=== PATIENT | female | born 1980 | race Caucasian/White ===

== ENCOUNTER → 2019-03-24 22:32 | Observation (INO) ==
[2019-03-24 19:40] LABS: Bilirubin,Urine Negative (Negative); Blood,Urine Negative (Negative); Clarity,Urine Clear (Clear); Color,Urine Yellow (Yellow); Glucose,Urine (UA) Normal (Normal); Ketones,Urine Negative (Negative); Leukocyte Esterase,Urine Negative (Negative); Nitrite,Urine Negative (Negative); Protein,Urine Negative (Neg-Trace); Urobilinogen,Urine Normal (Normal)
[2019-03-24 19:47] LABS: Amphetamine Screen,Urine Negative ng/mL (Cutoff=1000); Barbiturate Screen,Urine Negative ng/mL (Cutoff=200); Benzodiazepines Screen,Urine Negative ng/mL (Cutoff=200); Cannabinoid Screen,Urine Negative ng/mL (Cutoff = 50); Cocaine Screen,Urine Negative ng/mL (Cutoff= 300); Opiate Screen,Urine Negative ng/mL (Cutoff=300); Phencyclidine Screen,Urine Negative ng/mL (Cutoff=25)
--- NOTE | 2019-03-24 22:29 | OB/GYN Progress Note ---
Date of Encounter: 03/24/19 Time of Encounter: 22:27 - Assessment and Plan (1) 26 weeks gestation of Current Visit: Yes Status: Acute (2) Back pain affecting in second trimester Current Visit: Yes Status: Acute Pain improved during triage stay. Cervix remains closed. UA negative. Discharged home with labor when to return to triage precautions. Subjective - Subjective Interval history: 27 6 weeks gestation presents to triage with complaints of lower back pain. Patient states history of delivery. Reports good movement, denies vaginal bleeding or leaking of fluid. Antepartum ROS: movement normal, no loss of fluid, no vaginal bleeding, no contractions Objective - Vital Signs Vital Signs: Intake and Output 03/24/19 03/24/19 03/24/19 07:59 15:59 23:59 Other: Weight 75.2 kg Patient Weight 03/24/19 23:59 Weight 75.2 kg - Exam FHR: auscultation normal FHR comments: Appropriate for gestational age Abdomen: Present: soft, gravid Cervical dilation: Closed/thick/high confirm speculum exam
== END | disposition home or self-care (01) ==
LOC: 1NENULAB
PROVIDERS: ADMIT Advanced Practice Midwife; ATTEND Advanced Practice Midwife

== ENCOUNTER → 2019-05-10 20:28 | Observation (INO) ==
[2019-05-10] MEDS: Ringers Solution, Lactated 1,000 ML IVC SCH ×3 (14:00→18:40)
[2019-05-10 14:29] LABS: Bilirubin,Urine Negative (Negative); Blood,Urine Negative (Negative); Clarity,Urine Clear (Clear); Color,Urine Yellow (Yellow); Glucose,Urine (UA) Normal (Normal); Ketones,Urine Negative (Negative); Leukocyte Esterase,Urine Negative (Negative); Nitrite,Urine Negative (Negative); PH,Urine 7.5 pH Units (5.0-8.0); Protein,Urine Negative (Neg-Trace); Specific Gravity,Urine 1.006 (1.010-1.025); Urobilinogen,Urine Normal (Normal)
--- NOTE | 2019-05-10 14:43 | OB/GYN Progress Note ---
Date of Encounter: 05/10/19 Time of Encounter: 14:40 - Assessment and Plan (1) 33 weeks gestation of Current Visit: Yes Status: Acute Rehydrate with IV fluids Normal urine Zofran Yeast on glove with exam; terazol ordered for first dose to be given here Due to hx of PTB; will give first dose of steroids today and have patient return tomorrow for second dose Discharge home with labor precautions Follow up in office with routine care and PRN Follow up tomorrow in office or triage for second dose of betamethasone POC per consult with Dr Tovar (2) Back pain affecting in second trimester Current Visit: Yes Status: Acute (3) Vaginal yeast infection Current Visit: Yes Status: Acute Subjective - Subjective Principal diagnosis: Back pain and cramping Interval history: Ms Cazares is a at 33 weeks and 3 days that presents to triage with c/o back pain and cramping that began this morning after a period of vomiting for 3 days. She states she is not able to keep water down. She is unable to lie on her back as she states that it makes the pain worse. She has a history of 2 previous deliveries by at 34 weeks. She is seen by Dr Rayo for her care and is getting weekly Sonia injections at [facility]. She states positive movement. She denies headaches, leaking of fluid, visual disturbance, and vaginal discharge/bleeding. Antepartum ROS: movement normal Objective - Vital Signs Vital Signs: Intake and Output 05/09/19 05/10/19 05/10/19 23:59 07:59 15:59 Other: Weight 78 kg Patient Weight 05/10/19 23:59 Weight 78 kg - Exam FHR: auscultation normal, category 1 FHR comments: Appropriate for gestation. FHTS baseline 145 with moderate variability and 15 x 15 accels No decels Contractions irregular and less than every 10 minutes Abdomen: Present: normal appearance, soft, gravid Uterus: Present: normal. Absent: firm, tenderness Cervical dilation: 0 Cervix effacement: thick station: high - Labs Labs: Abnormal lab results Ur Specific [place] 1.006 (1.010-1.025) L 05/10/19 14:12
[2019-05-10 14:56] LABS: Amphetamine Screen,Urine Negative ng/mL (Cutoff=1000); Barbiturate Screen,Urine Negative ng/mL (Cutoff=200); Benzodiazepines Screen,Urine Negative ng/mL (Cutoff=200); Cannabinoid Screen,Urine Negative ng/mL (Cutoff = 50); Cocaine Screen,Urine Negative ng/mL (Cutoff= 300); Opiate Screen,Urine Negative ng/mL (Cutoff=300); Phencyclidine Screen,Urine Negative ng/mL (Cutoff=25)
[~2019-05-10 20:28] MED LIST: *HR* Nalbuphine 10 MG/ML AMPUL IV PRN; *HR* Promethazine 25 MG/ML VIAL IVP PRN; Betamethasone Acet/SodPhos 30 MG/5 ML VIAL IM SCH; NIFEdipine 10 MG CAPSULE PO PRN; Ondansetron 4 MG/2 ML VIAL IVP PRN; Ringers Solution, Lactated 1,000 ML ONE; Terconazole Vag CRM 20 GM TUBE VG SCH
== END | disposition home or self-care (01) ==
LOC: 1NENULAB
PROVIDERS: ADMIT Advanced Practice Midwife; ATTEND Advanced Practice Midwife

== ENCOUNTER → 2019-05-25 02:35 | Observation (INO) ==
[2019-05-24 21:14] LABS: Bilirubin,Urine Negative (Negative); Blood,Urine Negative (Negative); Clarity,Urine Clear (Clear); Color,Urine Yellow (Yellow); Glucose,Urine (UA) Normal (Normal); Ketones,Urine Negative (Negative); Leukocyte Esterase,Urine Negative (Negative); Nitrite,Urine Negative (Negative); Protein,Urine Trace mg/dL (Neg-Trace); Specific Gravity,Urine 1.018 (1.010-1.025); Urobilinogen,Urine Normal (Normal)
[2019-05-24 21:26] LABS: Amphetamine Screen,Urine Negative ng/mL (Cutoff=1000); Barbiturate Screen,Urine Negative ng/mL (Cutoff=200); Benzodiazepines Screen,Urine Negative ng/mL (Cutoff=200); Cannabinoid Screen,Urine Negative ng/mL (Cutoff = 50); Cocaine Screen,Urine Negative ng/mL (Cutoff= 300); Opiate Screen,Urine Negative ng/mL (Cutoff=300); Phencyclidine Screen,Urine Negative ng/mL (Cutoff=25)
--- NOTE | 2019-05-24 22:41 | Discharge Summary ---
Date of Encounter: 05/24/19 Time of Encounter: 22:39 - Discharge Diagnosis (1) 37 weeks gestation of Priority: Primary Status: Acute Comments: Admit to observation for labor evaluation (2) False labor after 37 completed weeks of gestation Priority: Secondary Status: Acute Comments: Irregular contractions noted. No cervical change in >1 hr (3) NST (non-stress test) reactive Priority: Secondary Status: Acute Comments: FHR 135 bpm, moderate variability, +15x15 accels, no decels. - Discharge Medications Prescriptions: No Action Promethazine [Phenergan] 25 mg PO Q8HR Pantoprazole Sodium 40 mg PO ONCE [place] NIFEdipine [Procardia] 10 mg PO Q6HR PRN #30 capsule PRN Reason: Cramping Home Medications: Promethazine [Phenergan] 25 mg PO Q8HR 02/01/19 [History] [place] 05/10/19 [History] NIFEdipine [Procardia] 10 mg PO Q6HR PRN #30 capsule 05/10/19 [Rx] Pantoprazole Sodium 40 mg PO ONCE 05/10/19 [History] Allergies/Adverse Reactions: Allergy/AdvReac Type Severity Reaction Status Date / Time No Known Allergies Allergy Verified 02/01/19 15:22 Data Procedures and tests throughout hospitalization: Laboratory Tests 05/24/19 05/24/19 20:45 20:45 Urine Color Yellow Urine Clarity Clear Urine pH 7.0 Ur Specific [place] 1.018 Urine Protein Trace Urine Glucose (UA) Normal Urine Ketones Negative Urine Blood Negative Urine Nitrite Negative Urine Bilirubin Negative Urine Urobilinogen Normal Ur Leukocyte Esterase Negative Ur Culture Indicated? NO Urine Opiates Screen Negative Ur Buprenorphine Scrn Negative Ur Barbiturates Screen Negative Ur Phencyclidine Scrn Negative Ur Amphetamines Screen Negative U Benzodiazepines Scrn Negative Urine Cocaine Screen Negative U Marijuana (THC) Screen Negative Ur Drug Screen Interp See Below Labs on day of discharge: Labs from last 24 hours 05/24/19 05/24/19 20:45 20:45 Urine Color Yellow Urine Clarity Clear Urine pH 7.0 Ur Specific [place] 1.018 Urine Protein Trace Urine Glucose (UA) Normal Urine Ketones Negative Urine Blood Negative Urine Nitrite Negative Urine Bilirubin Negative Urine Urobilinogen Normal Ur Leukocyte Esterase Negative Ur Culture Indicated? NO Urine Opiates Screen Negative Ur Buprenorphine Scrn Negative Ur Barbiturates Screen Negative Ur Phencyclidine Scrn Negative Ur Amphetamines Screen Negative U Benzodiazepines Scrn Negative Urine Cocaine Screen Negative U Marijuana (THC) Screen Negative Ur Drug Screen Interp See Below Date of admission: 05/24/19 20:24 Discharging clinician: Esther Correa Anticipated date of discharge: 05/24/19 - Patient Status Disposition: Home, Self-Care Condition: Good Functional capacity at discharge: independent ambulation Overall status at discharge: patient is progressing back to baseline - Discharge Instructions - Diet and Activity Activity: resume usual activities as tolerated Diet: regular diet Hospital Course [employer] Hospital course: Patient arrived with complaint of uterine contractions today. She is a repeat section with a history of . She has been on Progesterone during this . Recently, she was given Procardia 10mg to take q6h for contractions and she did take it today. On exam her cervix is closed and without change in >1 hour. She does complain of significant pain with contractions so we will give her Vistaril to see if she is able to rest. She is to return to her OB provider for routine care as scheduled. Time Attestation: Total time spent providing and/or coordinating discharge services: Time Spent: Less than 30 minutes Exam - Constitutional General appearance IM: A&O X 3, no acute distress - Respiratory Respiratory exam: Absent: respiratory distress - Cardiovascular Cardiovascular exam IM: Absent: irregular rhythm - Rectal Rectal exam: deferred - Extremities Exam Extremities exam IM: Present: full ROM, normal inspection. Absent: calf tend erness - Neurological Exam Neurological exam: alert, normal gait, oriented X3 - VTE Reasons for not Prescribing Prophylaxis: Treatment not Indicated - Low risk for VTE
[~2019-05-25 02:35] MED LIST changes: +*HR* Nalbuphine 10 MG/ML AMPUL IM ONE; -*HR* Nalbuphine 10 MG/ML AMPUL IV PRN; -*HR* Promethazine 25 MG/ML VIAL IVP PRN; +Acetaminophen 325 MG TABLET PO ONE; -Betamethasone Acet/SodPhos 30 MG/5 ML VIAL IM SCH; -NIFEdipine 10 MG CAPSULE PO PRN; -Ondansetron 4 MG/2 ML VIAL IVP PRN; -Ringers Solution, Lactated 1,000 ML ONE; -Terconazole Vag CRM 20 GM TUBE VG SCH; +hydrOXYzine pamoate 25 MG CAPSULE PO ONE
== END | disposition home or self-care (01) ==
LOC: 1NENULAB
PROVIDERS: ADMIT Registered Nurse; ATTEND Registered Nurse

== ENCOUNTER → 2019-06-04 16:45 | Observation (INO) ==
[2019-06-04 12:26] LABS: Amphetamine Screen,Urine Negative ng/mL (Cutoff=1000); Barbiturate Screen,Urine Negative ng/mL (Cutoff=200); Benzodiazepines Screen,Urine Negative ng/mL (Cutoff=200); Cannabinoid Screen,Urine Negative ng/mL (Cutoff = 50); Cocaine Screen,Urine Negative ng/mL (Cutoff= 300); Creatinine,Urine 188 mg/dL; Opiate Screen,Urine Negative ng/mL (Cutoff=300); Phencyclidine Screen,Urine Negative ng/mL (Cutoff=25); Protein/Creatinine Ratio,Urine 0.19 mg/mg (0.00-0.20)
[2019-06-04 12:39] LABS: Basophils % 0.2 %; Eosinophils # 0.1 K/mcL (0.0-0.6); Eosinophils % 1.2 %; Hematocrit 34.4 % (35.3-44.9); Hemoglobin 10.8 g/dL (11.5-15.4); Immature Granulocytes % 1.3 % (0-4); Lymphocytes # 1.7 K/mcL (0.6-4.6); Mean Corpuscular HGB Conc 31.4 g/dL (31.6-35.5); Mean Corpuscular Hemoglobin 29.3 pg (28.0-33.3); Mean Corpuscular Volume 93.2 fL (83.0-100.0); Mean Platelet Volume 10.8 fL (9.4-12.4); Monocytes # 0.5 K/mcL (0.0-1.3); Monocytes % 5.9 %; Neutrophils # 6.8 K/mcL (1.6-8.9); Platelet Count 221 K/mcL (140-400); Red Blood Count 3.69 M/mcL (3.82-4.97); Red Cell Distribution Width 14.3 % (11.5-14.5); Segmented Neutrophils % 73.4 %; White Blood Count 9.2 K/mcL (4.3-11.1)
[2019-06-04 12:48] LABS: Alanine Aminotransferase 10 Units/L (7-52); Aspartate Amino Transferase 13 Units/L (13-39); BUN/Creatinine Ratio 12 (6-26); Blood Urea Nitrogen 6 mg/dL (6-20); Lactate Dehydrogenase 143 Units/L (140-271); Uric Acid 4.8 mg/dL (2.3-7.6); eGFR For African Americans > 60 (> 60); eGFR For Non-African Americans > 60 (> 60)
--- NOTE | 2019-06-04 16:19 | Discharge Summary ---
Date of Encounter: 06/04/19 Time of Encounter: 16:18 - Discharge Diagnosis (1) Back pain affecting in third trimester Priority: Secondary Status: Acute (2) Itching Priority: Secondary Status: Acute Comments: Continue vistaril Try calamine lotion Bile acids 3 (3) 37 weeks gestation of Priority: Primary Status: Acute Comments: Follow-up with Dr. Eagn on Friday Labor parameters discussed Discharge home POC per consultation with Dr. Egan (4) NST (non-stress test) reactive Priority: Secondary Status: Acute - Discharge Medications Prescriptions: No Action Promethazine [Phenergan] 25 mg PO Q8HR Pantoprazole Sodium 40 mg PO ONCE Vistaril 25 mg PO TID PRN PRN Reason: Itching Nsi996/FA/Omega3/Dha/Fish Oil [ Gummies] 1 each PO DAILY Home Medications: Promethazine [Phenergan] 25 mg PO Q8HR 02/01/19 [History] Pantoprazole Sodium 40 mg PO ONCE 05/10/19 [History] Kzg725/FA/Omega3/Dha/Fish Oil [ Gummies] 1 each PO DAILY 06/04/19 [History] Vistaril 25 mg PO TID PRN 06/04/19 [History] Allergies/Adverse Reactions: Allergy/AdvReac Type Severity Reaction Status Date / Time No Known Allergies Allergy Verified 02/01/19 15:22 Data Procedures and tests throughout hospitalization: Laboratory Tests 06/04/19 06/04/19 06/04/19 11:55 11:55 11:55 WBC 9.2 RBC 3.69 L Hgb 10.8 L Hct 34.4 L MCV 93.2 MCH 29.3 MCHC 31.4 L RDW 14.3 Plt Count 221 MPV 10.8 Immature Gran % 1.3 Seg Neutrophils % 73.4 Lymphocytes % 18.0 Monocytes % 5.9 Eosinophils % 1.2 Basophils % 0.2 Neutrophils # 6.8 Lymphocytes # 1.7 Monocytes # 0.5 Eosinophils # 0.1 Basophils # 0.0 BUN 6 Creatinine 0.52 L Est GFR ( Amer) > 60 Est GFR (Non-Af Amer) > 60 BUN/Creatinine Ratio 12 Uric Acid 4.8 AST 13 ALT 10 Lactate Dehydrogenase 143 Urine Creatinine 188 Protein/Creatinin Ratio 0.19 Urine Total Protein 36 H Urine Opiates Screen Negative Ur Buprenorphine Scrn Negative Ur Barbiturates Screen Negative Ur Phencyclidine Scrn Negative Ur Amphetamines Screen Negative U Benzodiazepines Scrn Negative Urine Cocaine Screen Negative U Marijuana (THC) Screen Negative Ur Drug Screen Interp See Below Labs on day of discharge: Labs from last 24 hours 06/04/19 06/04/19 06/04/19 11:55 11:55 11:55 WBC 9.2 RBC 3.69 L Hgb 10.8 L Hct 34.4 L MCV 93.2 MCH 29.3 MCHC 31.4 L RDW 14.3 Plt Count 221 MPV 10.8 Immature Gran % 1.3 Seg Neutrophils % 73.4 Lymphocytes % 18.0 Monocytes % 5.9 Eosinophils % 1.2 Basophils % 0.2 Neutrophils # 6.8 Lymphocytes # 1.7 Monocytes # 0.5 Eosinophils # 0.1 Basophils # 0.0 BUN 6 Creatinine 0.52 L Est GFR ( Amer) > 60 Est GFR (Non-Af Amer) > 60 BUN/Creatinine Ratio 12 Uric Acid 4.8 AST 13 ALT 10 Lactate Dehydrogenase 143 Urine Creatinine 188 Protein/Creatinin Ratio 0.19 Urine Total Protein 36 H Urine Opiates Screen Negative Ur Buprenorphine Scrn Negative Ur Barbiturates Screen Negative Ur Phencyclidine Scrn Negative Ur Amphetamines Screen Negative U Benzodiazepines Scrn Negative Urine Cocaine Screen Negative U Marijuana (THC) Screen Negative Ur Drug Screen Interp See Below Date of admission: 06/04/19 11:09 Primary care physician: Michelle Sifuentes CNP Discharging clinician: Rina Flood Anticipated date of discharge: 06/04/19 - Patient Status Disposition: Home, Self-Care Condition: Good Functional capacity at discharge: independent ambulation Overall status at discharge: patient is progressing back to baseline - Discharge Instructions Follow Up With: Michelle Sifuentes CNP [Primary Care Provider] - Evelyn Egan MD [Partnered Physician] - Additional Instructions: LABOR AND DELIVERY DISCHARGE INSTRUCTIONS Signs and Symptoms to be Reported to your Doctor Immediately: * Sudden gush, continuous or intermittent lead of fluid from vagina (note the time of gush and color of fluid) * Onset of bright red vaginal bleeding with or without pain (if you had a vaginal exam during this visit you may notice some dark red spotting. This is normal.) * Contractions that are 5 minutes apart (from the beginning of one contraction to the beginning of the next) and last 45-60 seonds; contractions that you can no longer walk, talk or laugh through. * A change in the baby's activity. This could be an increase or decrease in activity. * Severe headache which does not go away with tylenol. * Sudden swelling in the face, hands, arms and/or legs. * Upper abdominal pain - sometimes associated with heartburn or nausea and is not relieved by Maalox, Mylanta or Tums. * Kick Counts __ One hour after a meal, lay down on one side in a quiet place. Count the number of time the baby moves during an hour. If less than 6 movements, notify your physician Diet: *Force fluids, 8 to 10 tall glasses of fluid per day - may include popsicles and jello *Limit caffeine - this includes chocolate, coffee, tea, any soft drink containing such as all evy, Shahzad Yellow and Mountain Dew - Diet and Activity Activity: increase activity as tolerated Diet: regular diet Hospital Course [employer] Reason for admission: other Discharge diagnosis: other Hospital course: Patient presented to labor and delivery with complaint of lower back pain, contractions, palmar and plantar itching. She did not evaluated by Dr. Egan earlier in the week for all of these concerns and labs were found to be negative. At first were still awaiting the bile acids which have now returned and are negative as well. She is still c/o itching and was advised to continue atarax and try calamine lotion. Discharged home in stable condition with follow up on Friday. Time Attestation: Total time spent providing and/or coordinating discharge services: Time Spent: Less than 30 minutes Exam - Constitutional General appearance IM: A&O X 3, pleasant, no acute distress, answers questions appropriately - Respiratory Respiratory exam: Present: CTAB - Cardiovascular Cardiovascular exam IM: Present: RRR, +S1, +S2 - GI/Abdominal GI/Abdominal exam IM: normal bowel sounds, no peritoneal signs - Uterine Tone: Firm - Extremities Exam Extremities exam IM: Present: full ROM, normal capillary refill, normal inspection, radial pulses palpable and symmetrical - Neurological Exam Neurological exam: alert, oriented X3, strengths equal and symetr throughout - VTE Reasons for not Prescribing Prophylaxis: Treatment not Indicated - Low risk for VTE
[~2019-06-04 16:45] MED LIST changes: -*HR* Nalbuphine 10 MG/ML AMPUL IM ONE; +*HR* Nalbuphine 10 MG/ML AMPUL IV PRN; +Ondansetron 4 MG/2 ML VIAL IVP PRN; +Ringers Solution, Lactated 1,000 ML ONE; -hydrOXYzine pamoate 25 MG CAPSULE PO ONE
== END | disposition home or self-care (01) ==
LOC: 1NENULAB
PROVIDERS: ADMIT Advanced Practice Midwife; ATTEND Advanced Practice Midwife

== ENCOUNTER 2019-06-15 05:29 | Inpatient (IN) ==
[2019-06-15] MEDS ORDERED: Naloxone 0.4 MG/ML INJ IVP PRN (05:31)
[2019-06-15] MEDS ORDERED: Famotidine 20 MG/2 ML VIAL IVP PRN (05:31)
[2019-06-15] MEDS ORDERED: Metoclopramide 10 MG/2 ML VIAL IVP PRN ×2 (05:31→11:09)
[2019-06-15] MEDS ORDERED: Ringers Solution, Lactated 1,000 ML IVC SCH (05:45)
[2019-06-15 06:21] LABS: Amphetamine Screen,Urine Negative ng/mL (Cutoff=1000); Barbiturate Screen,Urine Negative ng/mL (Cutoff=200)
[2019-06-15 06:22] LABS: Benzodiazepines Screen,Urine Negative ng/mL (Cutoff=300); Cannabinoid Screen,Urine Negative ng/mL (Cutoff = 50); Cocaine Screen,Urine Negative ng/mL (Cutoff= 300); Opiate Screen,Urine Negative ng/mL (Cutoff=300); Phencyclidine Screen,Urine Negative ng/mL (Cutoff=25)
[2019-06-15 06:25] LABS: Basophils % 0.2 %; Eosinophils # 0.1 K/mcL (0.0-0.6); Eosinophils % 0.8 %; Hematocrit 34.4 % (35.3-44.9); Hemoglobin 10.8 g/dL (11.5-15.4); Immature Granulocytes % 2.3 % (0-4); Lymphocytes # 2.2 K/mcL (0.6-4.6); Lymphocytes % 16.8 %; Mean Corpuscular HGB Conc 31.4 g/dL (31.6-35.5); Mean Corpuscular Hemoglobin 28.9 pg (28.0-33.3); Mean Platelet Volume 11.1 fL (9.4-12.4); Monocytes # 0.8 K/mcL (0.0-1.3); Monocytes % 6.1 %; Neutrophils # 9.5 K/mcL (1.6-8.9); Platelet Count 205 K/mcL (140-400); Red Blood Count 3.74 M/mcL (3.82-4.97); Red Cell Distribution Width 14.3 % (11.5-14.5); Segmented Neutrophils % 73.8 %; White Blood Count 12.9 K/mcL (4.3-11.1)
[2019-06-15] MEDS ORDERED: *HR* FentaNYL (PF) 100 MCG/2 ML VIAL ONE (07:01)
[2019-06-15] MEDS ORDERED: *HR* Morphine Sulfate/PF 10 MG/10 ML AMPUL ONE (07:01)
[2019-06-15] MEDS ORDERED: *HR* Oxytocin 10 UNIT/ML VIAL IM ONE (07:02)
[2019-06-15] MEDS ORDERED: Ondansetron 4 MG/2 ML VIAL IVP PRN ×2 (07:45→11:09)
[2019-06-15] MEDS ORDERED: *HR* Meperidine 25 MG/ML SYRINGE IVP PRN (07:45)
[2019-06-15] MEDS ORDERED: *HR* HYDROmorphone (PF) 1 MG/ML SYRINGE IVP PRN (07:45)
[2019-06-15] MEDS ORDERED: Acetaminophen IV 1,000 MG/100 ML INFUS..BTL IVPB ONE (07:45)
[2019-06-15] MEDS ORDERED: Water for inj. (sterile) 10 ML ONE (08:08)
[2019-06-15] MEDS ORDERED: EPHEDrine 50 MG/ML VIAL ONE (08:34)
[2019-06-15] MEDS ORDERED: Oxytocin 20 units/ LR 1000 mL 20 UNIT/1,000 ML BAG IVC ONE (09:49)
[2019-06-15] MEDS ORDERED: Sennosides 8.6 MG TABLET PO PRN (11:09)
[2019-06-15] MEDS ORDERED: Oxytocin 20 units/ LR 1000 mL 20 UNIT/1,000 ML BAG IVC SCH (11:09)
[2019-06-15] MEDS ORDERED: Rho Immune Globulin 1,500 UNIT SYRINGE IM ONE (11:09)
[2019-06-15] MEDS: *HR* OxyCODONE/APAP 5/325 TABLET PO PRN ×3 (12:21→23:42)
[2019-06-15] MEDS: hydrOXYzine pamoate 25 MG CAPSULE PO PRN ×2 (12:30→20:28)
[2019-06-15] MEDS: Ibuprofen 600 MG TABLET PO PRN ×2 (13:24→19:38)
[2019-06-15] MEDS: ceFAZolin 1,000 MG in Water for inj. (sterile) 10 ML IVP SCH ×2 (16:41→23:42)
[2019-06-16] MEDS: Ibuprofen 600 MG TABLET PO PRN ×2 (03:52→14:52)
[2019-06-16 06:01] LABS: Basophils % 0.3 %; Eosinophils # 0.1 K/mcL (0.0-0.6); Eosinophils % 0.7 %; Hematocrit 27.4 % (35.3-44.9); Hemoglobin 8.5 g/dL (11.5-15.4); Immature Granulocytes % 1.3 % (0-4); Lymphocytes # 1.7 K/mcL (0.6-4.6); Lymphocytes % 16.7 %; Mean Corpuscular Volume 93.5 fL (83.0-100.0); Mean Platelet Volume 10.6 fL (9.4-12.4); Monocytes # 0.7 K/mcL (0.0-1.3); Monocytes % 6.9 %; Neutrophils # 7.4 K/mcL (1.6-8.9); Platelet Count 172 K/mcL (140-400); Red Blood Count 2.93 M/mcL (3.82-4.97); Red Cell Distribution Width 14.5 % (11.5-14.5); Segmented Neutrophils % 74.1 %; White Blood Count 9.9 K/mcL (4.3-11.1)
[2019-06-16] MEDS: ceFAZolin 1,000 MG in Water for inj. (sterile) 10 ML IVP SCH (08:20)
[2019-06-16] MEDS ORDERED: Prenatal Vit/FA 1 EACH TABLET PO SCH (09:00)
[2019-06-16] MEDS: *HR* OxyCODONE/APAP 5/325 TABLET PO PRN ×2 (11:45→19:43)
[2019-06-16] MEDS: Simethicone 80 MG TAB.CHEW PO PRN (19:46)
[2019-06-17] MEDS: *HR* OxyCODONE/APAP 5/325 TABLET PO PRN ×2 (02:36→10:58)
[2019-06-17 07:48] VITALS: BP 108/53
[2019-06-17] MEDS: Ibuprofen 600 MG TABLET PO PRN (11:00)
[2019-06-17] MEDS ORDERED: MOM Conc 10 ML UD.LIQ PO ONE (11:10)
[2019-06-17] MEDS: Simethicone 80 MG TAB.CHEW PO PRN (11:52)
== END 2019-06-17 14:30 | disposition home or self-care (01) | DRG 540 ==
LOC: 1NENULAB 05:29 → 1NENUOBS 11:16
PROVIDERS: ADMIT Obstetrics & Gynecology; ATTEND Obstetrics & Gynecology